=== PATIENT | female | born 1990 | race African-American/Black ===

== ENCOUNTER 2016-09-12 09:55 | Emergency (ER) | payer OTHER ==
[~2016-09-12] VITALS: Ht 175.3 cm; Wt 108.0 kg
[~2016-09-12 09:55] MED LIST: CIPRO500 MG PO; FLOMAX0.4 MG PO; LORTAB 5-325 M1 EACH PO; MACROBID100 MG PO; MEDROL DOSEPAK4 MG PO; NAPROSYN500 MG PO; PERCOCET 5/31 TABLET PO; PROAIR HFA8.5 GM IH; PROMETHAZINE HC25 M1 PO; PYRIDIUM100 MG PO; TYLENOL WITH C1 EACH PO; VALIUM5 MG PO
[2016-09-12] MEDS ORDERED: MICROGESTIN1 EAC1 PO (10:14)
[2016-09-12] MEDS ORDERED: ATARAX,VISTARIL50 MG PO (10:14)
[2016-09-12 10:44] LABS: EOSINOPHIL (%) 1.6 % (0-5); EOSINOPHIL COUNT 0.1 K/uL (0-0.3); HEMATOCRIT 40.3 % (36.0-46.0); IMMATURE GRANULOCYTE (%) 0.2 % (0.0-0.7); INSTRUMENT ABS NEUTROPHIL CT 2.4 K/uL; LYMPHOCYTE COUNT 2.7 K/uL (1.0-2.8); MCH 28.7 PG (29.0-34.0); MEAN PLAT.VOLUME 9.8 uM^3 (9.5-12.4); MONOCYTE (%) 6.2 % (3-12); MONOCYTE COUNT 0.3 K/uL (0-0.8); NEUTROPHIL (%) 42.7 % (45-76); NEUTROPHIL COUNT 2.4 K/uL (1.8-6.4); PLATELET COUNT 377 K/uL (156-360); RBC DIS.WIDTH-CV 12.2 % (11.8-14.6); RBC DIS.WIDTH-SD 38.9 % (39-53); RED BLOOD COUNT 4.63 M/uL (3.80-5.20); WHITE BLOOD COUNT 5.5 K/uL (4.1-10.2)
[2016-09-12 10:51] LABS: ADD MIUA? YES; BILIRUBIN NEGATIVE; BLOOD SMALL; COLOR YELLOW ((YELLOW)); GLUCOSE (STRIP) NEGATIVE; KETONES NEGATIVE; LEUKOCYTES MODERATE; NITRITE NEGATIVE; PROTEIN (STRIP) NEGATIVE; SPECIFIC GRAVITY 1.017 (1.000-1.030); UROBILINOGEN 0.2 MG/DL (0.2-1.0)
[2016-09-12 10:55] LABS: CHLORIDE 106 mEq/L (99-109); POTASSIUM 4.2 mEq/L (3.7-5.4); SODIUM 138 mEq/L (136-147)
[2016-09-12 10:57] LABS: GLUCOSE 87 mg/dL (70-99)
[2016-09-12 10:58] LABS: BACTERIA RARE /HPF; EPITHELIAL CELLS 1+ /HPF; MUCUS TRACE /LPF; RED BLOOD CELLS 0-5 /HPF (0-5); UCUL ADDED? NO
[2016-09-12 10:58] LABS: ANION GAP 8 MEQ/L (2-14)
[2016-09-12 10:59] LABS: TOTAL BILIRUBIN 0.2 mg/dL (0.0-1.0)
[2016-09-12 11:00] LABS: ALKALINE PHOSPHATASE 61 IU/L (3-129)
[2016-09-12 11:01] LABS: GFR ESTIMATE (CALCULATED) > 59 mL/min/
[2016-09-12 11:02] LABS: UREA NITROGEN (BUN) 18 mg/dL (9-23)
[2016-09-12 11:04] LABS: LIPASE 35 U/L (1.0-51.0)
[2016-09-12 11:10] LABS: QUANTITATIVE HCG < 4.0 MIU/ML
[2016-09-12] MEDS ORDERED: NORCO 5/3251 TABLET PO (12:58)
[2016-09-12 13:15] VITALS: BP 120/86
== END 2016-09-12 13:15 | disposition home or self-care (01) ==
LOC: EME 09:55
PROVIDERS: Emergency Medicine
DX: K42.9 Umbilical hernia without obstruction or gangrene (principal); J45.909 Unspecified asthma, uncomplicated; Z87.442 Personal history of urinary calculi; Z88.1 Allergy status to other antibiotic agents; Z88.8 Allergy status to other drugs, medicaments and biological substances; J30.89 Other allergic rhinitis; D68.2 Hereditary deficiency of other clotting factors
CPT/HCPCS: 74177; 80053; 81003; 83690; 84702; 85025; 99281; 99285; J7030

== ENCOUNTER 2017-11-30 08:13 | Emergency (ER) | payer OTHER ==
[~2017-11-30] VITALS: Ht 175.3 cm; Wt 100.7 kg
[~2017-11-30 08:13] MED LIST changes: +ATARAX,VISTARIL50 MG PO; +MICROGESTIN1 EAC1 PO; +NORCO 5/3251 TABLET PO
[2017-11-30 09:10] LABS: HEMATOCRIT 38.8 % (36.0-46.0); HEMOGLOBIN 13.3 G/DL (11.9-15.5); MCHC 34.3 G/DL (30.0-36.0); MCV 87.4 FL (83-99); PLATELET COUNT 264 K/uL (156-360); RBC DIS.WIDTH-CV 12.2 % (11.8-14.6); RBC DIS.WIDTH-SD 39.1 % (39-53); RED BLOOD COUNT 4.44 M/uL (3.80-5.20); WHITE BLOOD COUNT 4.9 K/uL (4.1-10.2)
[2017-11-30 10:32] LABS: TROP-I INTERPRETATION NEGATIVE; TROPONIN-I < 0.01 ng/mL (0.0-0.30)
[2017-11-30 10:37] LABS: CHLORIDE 106 mEq/L (99-109); POTASSIUM 3.5 mEq/L (3.7-5.4); SODIUM 137 mEq/L (136-147)
[2017-11-30 10:39] LABS: GLUCOSE 96 mg/dL (70-99)
[2017-11-30 10:43] LABS: CREATININE 0.8 mg/dL (0.6-1.3); GFR ESTIMATE (CALCULATED) > 59 mL/min/
[2017-11-30 10:44] LABS: UREA NITROGEN (BUN) 7 mg/dL (9-23)
[2017-11-30] MEDS ORDERED: VENTOLIN HFA18 GM IH (11:01)
[2017-11-30 11:18] VITALS: BP 117/88
== END 2017-11-30 11:28 | disposition home or self-care (01) ==
LOC: EME 08:13
PROVIDERS: Nurse Practitioner Family
DX: J45.901 Unspecified asthma with (acute) exacerbation (principal); D86.9 Sarcoidosis, unspecified; D68.2 Hereditary deficiency of other clotting factors; Z87.442 Personal history of urinary calculi; Z88.1 Allergy status to other antibiotic agents; Z88.8 Allergy status to other drugs, medicaments and biological substances
CPT/HCPCS: 71046; 80048; 84484; 85027; 93005; 94640; 99281; 99284

== ENCOUNTER 2018-01-13 01:12 | Emergency (ER) | payer SELFPAY ==
[~2018-01-13] VITALS: Ht 175.3 cm; Wt 100.0 kg
[~2018-01-13 01:12] MED LIST changes: +VENTOLIN HFA18 GM IH
[2018-01-13] MEDS ORDERED: NORCO 5/3251 TABLET PO (01:59)
[2018-01-13] MEDS ORDERED: BACTRIM,SEPT1 TABLET PO (01:59)
[2018-01-13] MEDS ORDERED: NAPROSYN500 MG PO (01:59)
[2018-01-13] MEDS ORDERED: KEFLEX500 MG PO (01:59)
[2018-01-13 02:38] VITALS: BP 151/90
== END 2018-01-13 02:37 | disposition home or self-care (01) ==
LOC: EME 01:12
DX: L02.412 Cutaneous abscess of left axilla (principal); D86.9 Sarcoidosis, unspecified; Z88.8 Allergy status to other drugs, medicaments and biological substances
CPT/HCPCS: 99281; 99284